=== PATIENT | male | born 1985 | race Two or more races ===

== ENCOUNTER 2016-07-19 07:06 | Emergency (ER) | payer OTHER ==
[2016-07-19] MEDS ORDERED: LORazepam 1 MG TAB ONE (07:41)
[2016-07-19] MEDS ORDERED: LORazepam 1 MG TAB PO ONE (07:43)
--- NOTE | 2016-07-19 07:47 | UCPHY ---
H & P Time Seen by Provider: 07/19/16 07:12 Patient Type: New HPI/ROS: CHIEF COMPLAINT:Hand injury HPI: The patient is a 30-year-old male with no significant past medical history. Approximately one hour ago, he punched a wall with his right hand, causing acute pain and swelling to ulnar aspect of hand. No other injury. No numbness. REVIEW OF SYSTEMS: Aside from elements discussed in the HPI, a comprehensive 10-point review of systems was reviewed and is negative. PMH: None significant. SOCIAL HISTORY: . Denies drug abuse. FAMILY HISTORY: Reviewed, noncontributory PHYSICAL EXAM: General:Patient is alert, in no acute distress. Extremities: Tenderness and swelling is present to the distal 5th metacarpal. Skin intact. Distal cap refill normal. Neuro: Oriented x3. Normal motor function. Normal sensory function. Smoking Status: Never smoked Constitutional: Initial Vital Signs Temperature (C) 36.6 C 07/19/16 07:13 Heart Rate 85 07/19/16 07:13 Respiratory Rate 16 07/19/16 07:13 Blood Pressure 139/98 H 07/19/16 07:13 O2 Sat (%) 98 07/19/16 07:13 O2 Delivery Mode Room Air Allergies/Adverse Reactions: No Known Allergies Allergy (Unverified 07/19/16 07:12) Home Medications: Medication Instructions Recorded Hydrocodone/APAP 5/325 [[place] 1 - 2 tab PO Q4H PRN #10 tab 07/19/16 5/325 (RX)] MDM/Departure - MDM Diagnostics: Imaging Impressions Hand X-Ray 07/19/16 07:12 Impression: Boxer's fracture. Procedures: Procedure: Fracture reduction. The patient had x-rays taken and I confirmed that the patient had a fractured 5th metacarpal. The fracture required manual reduction by myself. I performed a hematoma block using lidocaine in the usual fashion. An ulnar gutter splint was applied by myself. After application of the splint I returned and re- examined the patient. The splint was adequately immobilizing the joint and distal to the splint the patient's circulation and sensation was intact. Medications Given: Discontinued Medications Lorazepam (Ativan) 1 mg PO EDNOW ONE Stop: 07/19/16 07:44 Last Admin: 07/19/16 07:43 Dose: 1 mg ED Course/Re-evaluation: This patient presents with a closed boxer's fracture which required reduction given degree of angulation. This was performed without incident. The patient was placed in a splint and given orthopedic follow-up. - Depart Disposition: Home, Routine, Self-Care Clinical Impression: Boxers fracture Qualifiers: Encounter type: initial encounter Fracture type: closed Qualified Code(s): S62.309A - Unspecified fracture of unspecified metacarpal bone, initial encounter for closed fracture Condition: Good Instructions: Boxer Fracture (ED) Additional Instructions: Rest, ice, elevation. Follow up with an orthopedic/hand surgeon within one week. Return to the emergency department for worsening pain, swelling, numbness , weakness or other concerns. Wear splint at all times until reevaluation. Prescriptions: Hydrocodone/APAP 5/325 [[place] 5/325 (RX)] 1 - 2 tab PO Q4H PRN #10 tab PRN Reason: Pain, Moderate Referrals: NONE *PRIMARY CARE P,. [Primary Care Provider] - As per Instructions Eligio Hoffmann MD [Medical Doctor] - As per Instructions - PQRS PQRS Measurement: 134: Depression screening and followup, PRIME MD-PHQ2 (12 years and older) Over the last 2 weeks, how often have you been bothered by any of the following problems? 1. Feeling down, depressed, or hopeless? 2. Little interest or pleasure in doing things? Patient answered no to both 1 and 2 130: Documentation of medications. Reviewed all patient medications, doses, route and frequency. 226: Do you smoke? No. 51: 18 years old and older with diagnosis of COPD, spirometry performance. Spirometry not performed; equipment not available. Patient has no history of COPD 52: 18 years old and older with COPD and symptoms of COPD or FEV1<60% predicted prescribed a B Agonist. Spirometry not performed; equipment not available.
[2016-07-19 08:58] VITALS: BP 136/89; PULSE 72; RESP 18; TEMP 97.2; O2SAT 97
== END 2016-07-19 08:41 | disposition home or self-care (01) ==
LOC: CED 07:06
PROC: 0PSPXZZ Reposition Right Metacarpal, External Approach (ICD-10-PCS; principal; 2016-07-19)
DX: S62.326A Displaced fracture of shaft of fifth metacarpal bone, right hand, initial encounter for closed fracture (principal); W22.8XXA Striking against or struck by other objects, initial encounter
CPT/HCPCS: 29125-PO; 73130-PO; 99203-PO; G0463-PO